=== PATIENT | female | born 1950 | race Caucasian/White ===

== ENCOUNTER → 2023-06-17 | Outpatient (CLI) | payer MEDICARE ==
[2023-06-17] MEDS: DENOSUMAB 60 MG/ML 1 ML SYRINGE SQ NR (13:50)
[2023-06-17 14:02] VITALS: BP 146/63; PULSE 77; RESP 16; TEMP 97.7
== END ==
LOC: PROCWHC3 13:29
PROVIDERS: ATTEND Family Medicine
DX: M81.0 Age-related osteoporosis without current pathological fracture (principal)
CPT/HCPCS: 96372; J0897